=== PATIENT | female | born 1980 | race Caucasian/White ===

== ENCOUNTER 2019-12-05 00:39 | Emergency (ER) | payer SELFPAY ==
[~2019-12-05] VITALS: Ht 165.1 cm; Wt 113.4 kg
--- NOTE | 2019-12-05 00:51 | NUR ---
BIBSELF C/O L SIDE ABDOMINAL PAIN X1 DAY +NAUSEA,-VOMITTING,-DIARRHEA -DYSURIA. 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
[2019-12-05] MEDS ORDERED: MORPHINE SULFATE INJ 4 MG/ML DISP.SYRIN ONE (01:18)
[2019-12-05] MEDS ORDERED: ONDANSETRON HCL/PF 4 MG/2 ML VIAL ONE (01:18)
[2019-12-05 01:24] LABS: BASOPHILS # (AUTO) 0.1 /CMM (0.0-0.2); BASOPHILS % (AUTO) 0.5 % (0.0-2.0); EOSINOPHILS % (AUTO) 0.7 % (0.0-6.0); HEMATOCRIT 37 % (33-45); HEMOGLOBIN 11.6 g/dL (11.5-14.8); LYMPHOCYTES % (AUTO) 7.1 % (20.0-44.0); MEAN CORPUSCULAR HGB CONC 31 g/dl (31.0-36.0); MEAN CORPUSCULAR VOLUME 79 fL (82-100); MONOCYTES # (AUTO) 0.4 /CMM (0.1-1.30); MONOCYTES % (AUTO) 2.9 % (2.0-12.0); NEUTROPHILS % (AUTO) 88.8 % (43.0-81.0); PLATELET COUNT (AUTO) 256 /CMM (150-450); RED BLOOD CELL COUNT(AUTO) 4.68 MIL/uL (4.0-5.2); WHITE BLOOD COUNT (AUTO) 13.5 K/uL (4.3-11.0)
[2019-12-05 01:26] LABS: APPEARANCE,URINE CLOUDY (CLEAR); BILIRUBIN,URINE NEGATIVE (NEGATIVE); BLOOD, URINE LARGE Ery/uL (NEGATIVE); COLOR,URINE RED (YELLOW); KETONES,URINE NEGATIVE (NEGATIVE); LEUKOCYTE ESTERASE ,URINE TRACE (NEGATIVE); NITRITE, URINE NEGATIVE (NEGATIVE); PH,URINE 6.5 (5.0-8.0); PROTEIN,URINE 30 mg/dl (NEGATIVE); UGLUCOSE NEGATIVE (NEGATIVE); UROBILINOGEN,URINE 0.2 EU/dL (0.2)
[2019-12-05 01:29] LABS: BACTERIA,URINE Few /HPF (None Seen); RBC,URINE TOO NUMEROUS TO COUN /HPF (0-2); SQUAMOUS EPITHELIAL CELL,UR Few /HPF (None Seen); WBC,URINE 21-50 /HPF (0-3)
[2019-12-05] MEDS ORDERED: ONDANSETRON HCL/PF 4 MG/2 ML VIAL IV ONE (01:30)
[2019-12-05] MEDS ORDERED: IV NS 0.9% 1,000 ML BAG IV ONE (01:30)
[2019-12-05] MEDS ORDERED: MORPHINE SULFATE INJ 2 MG/ML DISP.SYRIN IV ONE (01:30)
[2019-12-05 01:37] LABS: BILIRUBIN,DIRECT 0.1 mg/dL (0.0-0.2); BILIRUBIN,TOTAL 0.5 mg/dL (0.2-1.0); CALCIUM, SERUM 8.3 mg/dL (8.5-10.1); CREATININE 1.1 mg/dL (0.6-1.3); POTASSIUM 3.8 mmol/L (3.5-5.1); TOTAL PROTEIN, SERUM 7.9 g/dL (6.4-8.2)
--- NOTE | 2019-12-05 02:44 | NUR ---
Patient discharged to home in stable condition. Written and verbal after care instructions given. Patient verbalizes understanding of instruction. IV removed. Catheter intact and site benign. Pressure and 4x4 applied to site. No bleeding noted.
[2019-12-05 02:54] VITALS: BP 144/80
== END 2019-12-05 02:55 | disposition home or self-care (01) ==
LOC: ER 00:39
DX: N20.0 Calculus of kidney (principal); Z90.89 Acquired absence of other organs
CPT/HCPCS: 36415; 71045; 74176; 80048; 80076; 81001; 83690; 84702; 84703; 85025; 87086; 96361; 96374; 96375; 99285; J2270; J2405; J7030; 81000-TC

== ENCOUNTER 2023-10-26 09:21 | Emergency (ER) | payer OTHER ==
[~2023-10-26] VITALS: Ht 167.6 cm; Wt 129.3 kg
[2023-10-26] MEDS ORDERED: IBUPROFEN 600 MG TABLET ONE (10:32)
[2023-10-26] MEDS: IBUPROFEN 600 MG TABLET PO ONE (10:33)
[2023-10-26 12:39] VITALS: BP 151/87; TEMP 98.1; O2SAT 93
== END 2023-10-26 12:39 | disposition home or self-care (01) ==
LOC: ER 09:23
DX: M25.561 Pain in right knee (principal); Z90.49 Acquired absence of other specified parts of digestive tract; W01.0XXA Fall on same level from slipping, tripping and stumbling without subsequent striking against object, initial encounter; Y93.89 Activity, other specified; Y92.89 Other specified places as the place of occurrence of the external cause; Y99.8 Other external cause status
CPT/HCPCS: 73564-TC